=== PATIENT | male | born 1980 | race Caucasian/White ===

== ENCOUNTER 2018-11-24 19:37 | Emergency (ER) | payer SELFPAY ==
[~2018-11-24] VITALS: Ht 172.7 cm; Wt 77.0 kg
[2018-11-24] MEDS ORDERED: HYDROCODONE/ACETAMINOPHEN 5/325MG TABLET PO ONE (23:45)
[2018-11-24] MEDS ORDERED: AMOXICILLIN/POTASSIUM CLAVULANATE 875/125MG TAB PO ONE (23:45)
[2018-11-24] MEDS ORDERED: LIDOCAINE HCL/PF 1% 10 MG/ML 5ML VIAL IJ ONE (23:45)
[2018-11-24] MEDS ORDERED: TETANUS, DIPHTHERIA, PERTUSSIS VAC/PF 0.5ML (>7YR OLD) IM ONE (23:45)
[2018-11-24] MEDS ORDERED: BACITRACIN ZINC OINT UDPKT TOP ONE (23:45)
[2018-11-25 01:54] LABS: CHLORIDE 108 mEq/L (98-107)
[2018-11-25] MEDS ORDERED: IOHEXOL-350 100 ML BOTTLE ONE (04:19)
[2018-11-25 05:30] VITALS: BP 131/88
== END 2018-11-25 05:50 | disposition home or self-care (01) ==
LOC: ER 19:37
DX: S71.111A Laceration without foreign body, right thigh, initial encounter (principal); F17.200 Nicotine dependence, unspecified, uncomplicated; Z98.890 Other specified postprocedural states; W54.0XXA Bitten by dog, initial encounter; Y93.89 Activity, other specified; Y92.89 Other specified places as the place of occurrence of the external cause; Y99.8 Other external cause status
CPT/HCPCS: 12002; 36415; 73552; 73706; 80048; 90471; 90715; 99284; A4217; J3490; Q9967; Z7610

== ENCOUNTER 2018-11-27 11:08 | Emergency (ER) | payer SELFPAY ==
[~2018-11-27] VITALS: Ht 170.2 cm; Wt 73.0 kg
[2018-11-27] MEDS ORDERED: BACITRACIN ZINC OINT UDPKT TOP ONE (14:45)
[2018-11-27 15:00] VITALS: BP 132/84
== END 2018-11-27 15:03 | disposition home or self-care (01) ==
LOC: ER 11:08
DX: S71.151D Open bite, right thigh, subsequent encounter (principal); F17.200 Nicotine dependence, unspecified, uncomplicated; W54.0XXD Bitten by dog, subsequent encounter
CPT/HCPCS: 99283